=== PATIENT | female | born 1935 | race Caucasian/White ===

== ENCOUNTER → 2016-04-13 | Outpatient (CLI) | payer MEDICARE ==
--- NOTE | 2016-04-13 09:33 | RAD ---
EXAM DESCRIPTION: XR HAND 3 OR MORE VIEWS CLINICAL HISTORY: 80 y/o ,F, HAND PAIN COMPARISON: None. 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 Degenerative change of the base of the thumb. No fractures noted on today's study. Electronically signed by: Tyler Daniels MD 04/13/2016 09:32
--- NOTE | 2016-04-13 09:34 | RAD ---
EXAM DESCRIPTION: XR HAND 3 OR MORE VIEWS CLINICAL HISTORY: 80 y/o ,F, HAND PAIN COMPARISON: None. 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 No fractures noted on today's study. Electronically signed by: Tyler Daniels MD 04/13/2016 09:32
== END ==
LOC: RAD 08:31
PROVIDERS: ATTEND Orthopaedic Surgery
DX: M19.041 Primary osteoarthritis, right hand (principal); M19.042 Primary osteoarthritis, left hand

== ENCOUNTER 2016-08-28 11:41 | Emergency (ER) | payer MEDICARE ==
[2016-08-28] MEDS ORDERED: SULFA/TRIMETH 800/160 (DS) TAB 1 EA TAB PO ONE (12:01)
[2016-08-28] MEDS ORDERED: TETANUS,DIPHTHERIA,PERTUSSIS 1 EA SYG IM ONE (12:01)
[2016-08-28 12:02] VITALS: BP 126/62; TEMP 98.2; O2SAT 94
[2016-08-28] MEDS ORDERED: NEOMYCIN-BACITRACIN-POLYMYXIN 0.9 GM UD TOP ONE (12:02)
--- NOTE | 2016-08-28 12:04 | ED.PDOC ---
History of Present Illness - General Chief Complaint: Laceration Stated Complaint: LEFT LEG LACERATION Time Seen by Provider: 08/28/16 11:45 Source: patient Exam Limitations: no limitations - History of Present Illness Initial Comments: he patient is an 81-year-old female presenting to the emergency room after having slipped and fallen on a fishing dock. She sustained a 4 inch skin tear to her left anterior barton. It is hemostatic. She is not up-to-date on her tetanus. No other injuries. No difficulty with ambulating. Minimal pain. Timing/Duration: momentarily Severity: mild Improving Factors: nothing Worsening Factors: nothing Associated Symptoms: denies symptoms Allergies/Adverse Reactions: Allergies NO KNOWN ALLERGY Allergy (Unverified 01/24/13 07:58) Home Medications: Ambulatory Orders Furosemide [Lasix] 20 mg PO 01/24/13 Review of Systems - Review of Systems Constitutional: States: no symptoms reported EENTM: States: no symptoms reported Respiratory: States: no symptoms reported Cardiology: States: no symptoms reported Gastrointestinal/Abdominal: States: no symptoms reported Genitourinary: States: no symptoms reported Musculoskeletal: States: no symptoms reported Skin: States: see HPI Neurological: States: no symptoms reported Endocrine: States: no symptoms reported All other Systems: No Change from Baseline Past Medical History (General) - Patient Medical History Hx Congestive Heart Failure: No Hx Diabetes: No Family Medical History - Family History Mother Family History: Unknown Physical Exam - Physical Exam General Appearance: Alert, Comfortable, No apparent distress Eye Exam: bilateral normal Ears, Nose, Throat: hearing grossly normal, normal pharynx Neck: full range of motion Respiratory: no respiratory distress, no accessory muscle use Cardiovascular/Chest: normal peripheral pulses, no edema Peripheral Pulses: radial,right: 2+, radial,left: 2+, dorsalis pedis,right: 2+, dorsalis pedis,left: 2+ Rectal Exam: deferred Extremity: normal range of motion, no pedal edema, no calf tenderness, normal capillary refill Neurologic: alert, normal mood/affect, oriented x 3 Skin Exam: normal color - some bruising to the anterior barton. 4 inch skin tear to the mid barton anteriorly. Hemostatic. Comments: Vital Signs - 24 hr 08/28/16 11:42 Temperature 98.2 F Pulse Rate [ 68 right brachial] Respiratory 16 Rate Blood Pressure 126/62 [right brachial ] O2 Sat by Pulse 94 L Oximetry Progress - Progress Progress: 08/28/16 12:04 the patient is an 81-year-old female presenting due to a skin tear to her left barton after a fall. The wound is irrigated with sterile saline. Steri- Strips and benzoin used for closure. The patient tolerated this well. The strips will fall off on their own. She was given 1 dose of Bactrim and a tetanus shot. ER warnings were given for any worsening. Departure - Departure Clinical Impression: Skin tear ICD-10 Supporting Text: left lower extremity, 4 inches, initial Disposition: Discharge to Home or Self Care Condition: Fair Departure Forms: ED Discharge - Pt. Copy, Patient Portal Self Enrollment Diet: regular diet Activity: increase activity as tolerated Referrals: Alex Ch MD [Primary Care Provider] - 1-2 Weeks Home Medications: Ambulatory Orders Furosemide [Lasix] 20 mg PO 01/24/13 Additional Instructions: the patient is an 81-year-old female presenting due to a skin tear to her left barton after a fall. The wound is irrigated with sterile saline. Steri- Strips and benzoin used for closure. The patient tolerated this well. The strips will fall off on their own. She was given 1 dose of Bactrim and a tetanus shot. ER warnings were given for any worsening.
== END 2016-08-28 12:28 | disposition home or self-care (01) ==
LOC: ER 11:41
DX: S81.812A Laceration without foreign body, left lower leg, initial encounter (principal); Z23 Encounter for immunization; W01.0XXA Fall on same level from slipping, tripping and stumbling without subsequent striking against object, initial encounter; Y92.89 Other specified places as the place of occurrence of the external cause

== ENCOUNTER → 2016-11-02 | Outpatient (CLI) | payer MEDICARE | END | disposition home or self-care (01) | LOC: MAMMO 10:00 | PROVIDERS: ATTEND Family Medicine | DX: Z12.31 Encounter for screening mammogram for malignant neoplasm of breast (principal) | CPT/HCPCS: 77063; G0202 ==

== ENCOUNTER → 2016-11-17 | Outpatient (CLI) | payer MEDICARE ==
--- NOTE | 2016-11-17 11:09 | MRI ---
EXAM DESCRIPTION: Lumbar Spine w/o Contrast CLINICAL HISTORY: 81 years, Female, LUMBAR RADICULOPATHY right-sided back pain, right leg pain COMPARISON: Plain radiographs October 14 FINDINGS: Sagittal and axial sequences. Lumbar vertebral bodies have normal bone marrow signal seen for degenerative-type changes lower two interspaces. Chronic. Partial compression of T12 noted with Schmorl's node. Conus terminates at L1. L1-2 unremarkable. Narrowing L2-3 with bulging disc asymmetric to the right. Mild bilateral foraminal narrowing. Slight impingement on the exiting right L2 root. At L3-4 about 4 mm anterolisthesis with bulging disc osteophyte asymmetric to the right. Bilateral right greater than left foraminal narrowing. Mild facet degenerative change with mild central stenosis. Narrowing L4-5 with about 2 mm retrolisthesis and mild bulging disc. Facet degenerative change. L5-S1 disc within normal limits. Mild facet degenerative change. IMPRESSION: 1. Anterolisthesis L3-4 narrowing and bulging disc osteophyte asymmetric to the right. Bilateral right greater than left foraminal narrowing. Mild central stenosis. 2. Narrowing L2-3 with bulging disc asymmetric to the right. Slight impingement on the exiting right L2 root 3. Retrolisthesis and mild bulging disc L4-5. Other mild degenerative disc changes as discussed above Electronically signed by: Theron Durant MD 11/17/2016 11:07 AM CDT
== END ==
LOC: MRI 08:09
PROVIDERS: ATTEND Orthopaedic Surgery Orthopaedic Surgery of the Spine
DX: M54.16 Radiculopathy, lumbar region (principal); M43.16 Spondylolisthesis, lumbar region

== ENCOUNTER → 2016-12-07 | Outpatient (CLI) | payer MEDICARE | END | disposition home or self-care (01) | LOC: GMAB 15:00 | PROVIDERS: ATTEND Family Medicine | DX: E55.9 Vitamin D deficiency, unspecified (principal) ==

== ENCOUNTER → 2017-06-13 | Outpatient (CLI) | payer MEDICARE | LOC: GMAB 09:49 | PROVIDERS: ATTEND Family Medicine | DX: R53.83 Other fatigue (principal) ==

== ENCOUNTER → 2017-11-03 | Outpatient (CLI) | payer MEDICARE ==
--- NOTE | 2017-11-07 09:50 | MAM ---
EXAM DESCRIPTION: 3D Screening BILATERAL : Digital Mammography. CLINICAL HISTORY: 82 years Female SCREEN . No personal history of breast cancer. Sister with ovarian cancer. No family history of breast cancer. Childbirth. Postmenopausal. No HRT. Lifetime risk of developing breast cancer (Tyrer-Cuzick model) is 8 %. COMPARISON: Bilateral screening digital breast tomosynthesis 11/02/2016. TECHNIQUE: Bilateral CC and MLO projection full-field images, Digital tomosynthesis mammographic technique. Bilateral digital 2-D full-field MLO images. CAD not utilized. FINDINGS: The breast parenchymal density pattern is: Scattered areas of fibroglandular density. No skin thickening or nipple retraction. Small bilateral solitary microcalcifications. No new focal, stellate mass or density, focal asymmetry , and no suspicious microcalcifications bilaterally. Stable mammograms compared to prior study. Taking into account, differences in mammographic technique. IMPRESSION: BI-RADS CATEGORY: 2 - BENIGN FINDINGS. FOLLOW UP: Routine digital bilateral screening, one year interval from October 2017. Written communication explaining the IMPRESSION and follow-up, will be mailed to the patient and referring health care provider. According to the [employer], yearly mammograms are recommended starting at age 40 and continuing as long as a woman is in good health. Any breast change noted on a breast self-exam should be reported promptly to the patient's healthcare provider. Breast MRI is recommended for women with an approximately 20-25% or greater lifetime risk of breast cancer, including women with a strong family history of breast or ovarian cancer and women who have been treated for Hodgkin's disease. A negative mammographic report should not delay tissue diagnosis in patients with significant clinical history or physical findings. Extremely dense breast tissue limits the sensitivity of digital mammography. Electronically signed by: Rogerio Romano MD 11/07/2017 9:49 AM CDT
== END ==
LOC: MAMMO 13:00
PROVIDERS: ATTEND Family Medicine
DX: Z12.31 Encounter for screening mammogram for malignant neoplasm of breast (principal)

== ENCOUNTER → 2018-04-04 | Outpatient (CLI) | payer MEDICARE ==
--- NOTE | 2018-04-04 12:24 | RAD ---
EXAM DESCRIPTION: Pelvis CLINICAL HISTORY: 82 years Female, PAIN IN RIGHT HIP COMPARISON: None. TECHNIQUE: AP radiograph of the pelvis was performed. FINDINGS: The pelvic ring appears grossly intact on this single AP radiograph. No acute fracture or dislocation. Bilateral sacroiliac joints appear normal. Mild degenerative changes are noted in both hips.. The visualized lumbo-sacral spine demonstrates mild degenerative changes. IMPRESSION: Single AP radiograph of the pelvis demonstrates grossly intact pelvic ring. Mild bilateral hip osteoarthritic is. Electronically signed by: Mary Huerta MD 04/04/2018 12:23 PM [facility]
== END ==
LOC: RAD 10:43
PROVIDERS: ATTEND Orthopaedic Surgery
DX: M25.561 Pain in right knee (principal); M25.551 Pain in right hip; M16.0 Bilateral primary osteoarthritis of hip

== ENCOUNTER → 2019-03-12 | Outpatient (CLI) | payer MEDICARE ==
--- NOTE | 2019-03-12 09:05 | RAD ---
EXAM DESCRIPTION: Femur,Left CLINICAL HISTORY: 83 years Female, FEMUR PAIN COMPARISON: None. TECHNIQUE: 2 views of the left femur were obtained. FINDINGS: Mild to moderate degenerative changes are noted in the left hip joint. No acute fracture or dislocation. The soft tissues appear normal. IMPRESSION: No bony abnormality is noted within the left femur. Electronically signed by: Mary Huerta MD 03/12/2019 9:04 AM [facility]
--- NOTE | 2019-03-12 09:06 | RAD ---
EXAM DESCRIPTION: Pelvis CLINICAL HISTORY: 83 years Female, HIP PAIN COMPARISON: None. TECHNIQUE: AP radiograph of the pelvis was performed. FINDINGS: The pelvic ring appears grossly intact on this single AP radiograph. No acute fracture or dislocation. Bilateral sacroiliac joints appear normal. Mild to moderate degenerative changes are noted in the bilateral hip joints. The visualized lumbo-sacral spine demonstrates mild degenerative changes. IMPRESSION: Single AP radiograph of the pelvis demonstrates grossly intact pelvic ring. [id number] bilateral hip osteoarthritis. Electronically signed by: Mary Huerta MD 03/12/2019 9:04 AM [facility]
== END ==
LOC: RAD 07:59
PROVIDERS: ATTEND Orthopaedic Surgery
DX: M16.0 Bilateral primary osteoarthritis of hip (principal); M79.605 Pain in left leg

== ENCOUNTER → 2019-03-28 | Outpatient (CLI) | payer MEDICARE ==
--- NOTE | 2019-03-29 11:54 | MRI ---
EXAM DESCRIPTION: Lumbar Spine w/o Contrast : Magnetic Resonance Imaging. CLINICAL HISTORY: LUMBAR RADICULOPATHY COMPARISON: Pelvic MRI on the same visit. MRI scan lumbar spine without contrast November 2016. TECHNIQUE: Multiplanar, multiple standard sequences, non contrast MRI, lumbar spine. FINDINGS: L5-S1: The disc is well visualized on axial T2 series 501, image 3. Disc desiccation with disc space maintained. Schmorl's node superior endplate S1. Posterior disc bulge. 6 mm disc extrusion inferiorly to the left of midline impressing on the left S1 nerve in the lateral subarticular recess. Narrowing of the canal. Hypertrophic degeneration in the posterior elements: Facet joints and posterior flavum ligaments. No canal stenosis. Bilateral mild to moderate foraminal narrowing. L4-L5: Marked disc space loss more in the midline into the left of midline. 2 mm grade 1 retrolisthesis. Minimal posterior disc remnant bulge with minimal anterior bulge and spurs. Degenerative hypertrophy of the posterior elements, more left. Mild to moderate canal narrowing. Mild foraminal narrowing more left than right. L3-L4: Internal fixation of the posterior L4 elements in the midline. Not involving the facet joints. Minimal metallic susceptibility artifact. Bilateral partial laminectomy and minimal decompression. Significant disc space loss with disc desiccation. Moderate anterior endplate reactive changes. Grade 1 anterolisthesis 4 mm. Moderate degenerative hypertrophy of the posterior elements. Mild bilateral foraminal narrowing. L2-L3: Disc desiccation with disc space maintained. Mild to moderate endplate reactive changes on the right and right posterior endplates. Degenerative hypertrophy of the posterior elements more on the right than the left. Mild foraminal narrowing more on the right than the left. Trace anterolisthesis. AP canal diameter 11 mm. L1-L2: Disc desiccation with disc space maintained. No significant bulging. Mild anterior endplate reactive changes. Degenerative hypertrophy of the posterior elements. No canal or foraminal stenosis. Conus terminates at L1. T12-L1: Schmorl's node and depression in the central superior L1 endplate approximately 25%. Disc expanding into the concave superior endplate. No endplate retropulsion. New since the prior study. Minimal disc desiccation. No significant narrowing or stenosis of the canal or foramina. T11-T12: Schmorl's node superior endplate and moderate endplate reactive changes stable. Minimal disc desiccation no disc bulging. Minimal degenerative hypertrophy of the posterior elements. Canal and foramina are patent. Mid lumbar levoscoliosis. Paravertebral soft tissues paraspinal muscle atrophy. Heterogeneous dilated gallbladder.. Distal cord normal signal and caliber. Otherwise normal marrow signal in the remaining vertebral bodies and the posterior elements. Vertebral bodies are not compressed at any level. IMPRESSION: 1. Multiple levels of disc desiccation, disc space loss, spondylosis and spondylolisthesis, hypertrophic degenerative changes in the foot facet joints and posterior flavum ligaments. 2. Left posterior small herniation and extrusion of the L5-S1 disc into the left subarticular recess and impressing on the left S1 nerve root new since the prior study. Correlate for left S1 radiculopathy. 3. Midline partial laminectomy at L4 with decompression, but no complications. Moderate canal narrowing at L3-L4 but no stenosis. Grade 1 anterolisthesis. Mild bilateral foraminal narrowing. 4. Moderate canal narrowing L2-L3. Trace anterolisthesis. Mild foraminal narrowing. 5. Interval compression deformity and Schmorl's node in the superior L1 endplate approximately 25% no retropulsion. No stenosis of the canal or foramina. Electronically signed by: Rogerio Romano MD 03/29/2019 11:53 AM [employer]
== END ==
LOC: MRI 07:57
PROVIDERS: ATTEND Orthopaedic Surgery
DX: M54.16 Radiculopathy, lumbar region (principal); M51.36 Other intervertebral disc degeneration, lumbar region; M47.896 Other spondylosis, lumbar region; M43.16 Spondylolisthesis, lumbar region; M51.27 Other intervertebral disc displacement, lumbosacral region; M51.46 Schmorl's nodes, lumbar region; M25.552 Pain in left hip; S32.010S Wedge compression fracture of first lumbar vertebra, sequela; Z98.890 Other specified postprocedural states

== ENCOUNTER → 2019-03-29 | Outpatient (CLI) | payer MEDICARE ==
--- NOTE | 2019-03-29 12:31 | MRI ---
EXAM DESCRIPTION: Pelvis w/o Contrast CLINICAL HISTORY: 83 years Female, PAIN IN LEFT HIP COMPARISON: None. TECHNIQUE: Multiple multiecho imaging of the pelvis was performed without gadolinium administration. FINDINGS: Mild irregularity and hypertrophy of the greater trochanter could be secondary to enthesopathy. Mild enthesopathy of the hamstrings is noted as well. The visualized bones demonstrate no abnormal signal to suggest acute injury or avascular necrosis. Mild to moderate degenerative changes identified in the bilateral hip joints. The visualized intrapelvic contents appear normal. IMPRESSION: Mild enthesopathy of the gluteus and hamstring tendons. Otherwise no acute abnormality is noted in the left hip. Electronically signed by: Mary Huerta MD 03/29/2019 12:30 PM [employer]
== END ==
LOC: MRI 08:00
PROVIDERS: ATTEND Orthopaedic Surgery
DX: M76.02 Gluteal tendinitis, left hip (principal); M76.892 Other specified enthesopathies of left lower limb, excluding foot; M54.16 Radiculopathy, lumbar region

== ENCOUNTER → 2019-06-21 | Outpatient (CLI) | payer MEDICARE | LOC: GMAE 12:25 | PROVIDERS: ATTEND Family Medicine | DX: Z79.899 Other long term (current) drug therapy (principal); E78.49 Other hyperlipidemia ==

== ENCOUNTER → 2020-01-08 | Outpatient (CLI) | payer MEDICARE ==
--- NOTE | 2020-01-09 12:57 | MAM ---
EXAM DESCRIPTION: 3D Screening BILATERAL : Digital Mammography. CLINICAL HISTORY: 84 years Female ANNUAL SCREENING . No complaints. Sister with ovarian cancer at age 68. No family history breast cancer. Menarche age 13. Childbirth age 25. Menopause age 50. No HRT. Benign left breast cyst aspiration Lifetime risk of developing breast cancer (Tyrer-Cuzick model)(%): Not calculated due to patient age over 85 years. COMPARISON: Bilateral screening digital breast tomosynthesis October 2017 and bilateral screening digital breast 2-D imaging October 2016. TECHNIQUE: Bilateral CC and MLO projection full-field images, digital tomosynthesis mammographic technique. Bilateral digital 2-D full-field MLO images. CAD available for 2-D images. FINDINGS: The breast parenchymal density pattern is: Scattered areas of fibroglandular density. No skin thickening or nipple retraction. Skin mole markers. Solitary microcalcifications. Stable circumscribed nodules in both breasts most likely intramammary lymph nodes. No new focal, stellate mass or density, focal asymmetry , and no suspicious microcalcifications bilaterally. Stable mammograms compared to prior study. Taking into account, differences in mammographic technique. IMPRESSION: Benign exam. BIRAD CATEGORY: 2 BENIGN FINDINGS. RECOMMENDATIONS: FOLLOW UP: Routine digital bilateral mammographic screening, one year interval from December 2019. Written communication explaining the IMPRESSION and follow-up, will be mailed to the patient and referring health care provider. According to the [employer], yearly mammograms are recommended starting at age 40 and continuing as long as a woman is in good health. Any breast change noted on a breast self-exam should be reported promptly to the patient's healthcare provider. Breast MRI is recommended for women with an approximately 20-25% or greater lifetime risk of breast cancer, including women with a strong family history of breast or ovarian cancer and women who have been treated for Hodgkin's disease. A negative mammographic report should not delay tissue diagnosis in patients with significant clinical history or physical findings. Extremely dense breast tissue limits the sensitivity of digital mammography. Electronically signed by: Rogerio Romano MD 01/09/2020 12:55 PM CDT
== END ==
LOC: MAMMO 10:06
PROVIDERS: ATTEND Family Medicine
DX: Z12.31 Encounter for screening mammogram for malignant neoplasm of breast (principal)